=== PATIENT | male | born 1955 | race Caucasian/White ===

== ENCOUNTER 2019-07-28 07:44 | Outpatient (CLI) | payer BC, SELFPAY ==
--- NOTE | 2019-07-28 08:34 | ECG_ITS ---
Measurements Intervals [place] Rate: 59 P: 40 IN: 148 QRS: -22 QRSD: 86 T: 12 QT: 383 QTc: 381 Interpretive Statements SINUS BRADYCARDIA BORDERLINE R WAVE PROGRESSION, ANTERIOR LEADS CONSIDER INFERIOR INFARCT, AGE INDETERMINATE BASELINE ARTIFACT- I, II, III, AVR, AVL, AVF, V3 ABNORMAL ECG Electronically Signed On 07-28-2019 8:59:12 CDT by Chase Tapia D.O.
[2019-07-28 09:01] LABS: Basophils Absolute Auto 0.1 K/mm3 (0.0-0.1); Eosinophils Absolute Auto 0.2 K/mm3 (0-0.3); Eosinophils Percent Auto 3.3 % (0-4.4); Hemoglobin 14.8 g/dL (14.0-18.0); Immature Granulocyte Absolute 0.02 K/mm3 (0.00-0.031); Immature Granulocyte Percent A 0.3 % (0-0.5); Lymphocytes Absolute Auto 1.93 K/mm3 (0.9-3.2); Lymphocytes Percent Auto 27.5 % (18.3-44.2); Mean Corpuscular HGB Conc 32.9 g/dl (32-36); Mean Corpuscular Hemoglobin 31.4 pg (26-34); Mean Corpuscular Volume 95.5 fl (80-100); Mean Platelet Volume 11.3 fl (7.4-10.4); Monocytes Absolute Auto 0.5 K/mm3 (0.1-0.6); Monocytes Percent Auto 7.6 % (2.6-8.5); Neutrophils Absolute Auto 4.2 K/mm3 (1.3-6.7); Neutrophils Percent Auto 60.3 % (45.5-73.1); Platelet Count Result 216 k/mm3 (150-375); Red Blood Count 4.71 M/mm3 (4.6-6.20)
[2019-07-28 09:10] LABS: Prothrombin Time 12.8 Seconds (11.1-14.7)
[2019-07-28 09:11] LABS: Partial Thromboplastin Time 27.5 SECONDS (22.3-36.8)
[2019-07-28 09:17] LABS: Urine Cotinine NEGATIVE
[2019-07-28 09:19] LABS: Albumin Level 4.3 g/dL (3.5-5.1); Blood Urea Nitrogen 21 mg/dL (9-20); Calcium 8.9 mg/dL (8.4-10.2); Carbon Dioxide 29 mmol/L (22-30); Chloride 104 mmol/L (98-107); Estimated Glomerular Filt Rate > 60; Glucose 88 mg/dL (75-110); Potassium 3.7 mmol/L (3.4-5.0); Sodium 139 mmol/L (137-145)
[2019-07-28 09:32] LABS: Add Urine Microscopic? YES; Appearance Urine Clear (Clear); Bilirubin Urine Negative (Negative); Blood Urine Negative (Negative); Color Urine Yellow (Yellow); Glucose Urine UA Negative (Negative); Ketones Urine Negative (Negative); Leukocyte Esterase Ur Negative LEU/UL (Negative); Mucus Urine Heavy /lpf; Nitrate Urine Negative (Negative); Protein Urine Negative (Negative); RBC Urine 0-2 /hpf (0-2); Specific Grav Ur 1.028 (1.001-1.035); Urobilinogen Urine Negative mg/dL (<2.0); WBC Urine 0-3 /hpf
== END 2019-07-28 07:45 | disposition home or self-care (01) ==
LOC: ANHSURGERY 07:47
PROVIDERS: PCP Family Medicine; Visit Provider Orthopaedic Surgery
DX: Z01.818 Encounter for other preprocedural examination (principal); M17.10 Unilateral primary osteoarthritis, unspecified knee; R94.31 Abnormal electrocardiogram [ECG] [EKG]
CPT/HCPCS: 36415; 80048; 80307; 81001; 82040; 83036; 85025; 85610; 85730; 86850; 86900; 86901; 87081; 93005

== ENCOUNTER 2019-08-02 00:26 | Outpatient (CLI) | payer BC, SELFPAY ==
[2019-08-02 17:00] LABS: SARS-CoV-2 RNA PCR Negative
== END 2019-08-02 00:27 | disposition home or self-care (01) ==
LOC: ANHCOVIDDT 00:26
PROVIDERS: PCP Family Medicine; Visit Provider Orthopaedic Surgery
DX: Z01.818 Encounter for other preprocedural examination (principal); Z11.59 Encounter for screening for other viral diseases
CPT/HCPCS: 87635; C9803; U0003

== ENCOUNTER 2019-08-04 18:15 | Inpatient (IN) | payer BC, SELFPAY ==
[2019-07-28 08:00] VITALS: BMI 29.3
[2019-07-28 08:37] VITALS: BP 126/64; PULSE 62; RESP 20; TEMP 36.6; O2SAT 100
[2019-08-04] VITALS (11 sets, daily range): BP systolic 108–135; BP diastolic 60–91; PULSE 58–73; RESP 12–18; TEMP 35.8–36.7; O2SAT 93–100
--- NOTE | ~2019-08-04 | XR_ITS ---
EXAMINATION: XR knee RT 2V DATE: 08/04/2019 17:20 INDICATION: Postoperative evaluation following right total knee arthroplasty. TECHNIQUE: Anteroposterior and lateral views of the right knee were obtained. COMPARISON: None. FINDINGS: Right total knee arthroplasty without patellar resurfacing appears well seated and in near anatomic a lignment. No fractures identified. Skin kris and expected postoperative subcutaneous and intrame dullary and intra-articular gas. IMPRESSION: 1. Right total knee arthroplasty, negative for postoperative purposes. Reviewed, dictated and finalized at location A.
--- NOTE | 2019-08-04 07:31 | WPDHPUPDATE1 ---
History and Physical Update Update Date/Time: 08/04/19 07:31 History and Physical has been reviewed, including an updated exam of the patient. There are NO changes in the patient's condition. Risks, benefits, and alternatives have been discussed and questions answered. Patient agrees to proceed with procedure.
[2019-08-04] MEDS: LACTATED RINGERS 1,000 ML 30 ML IV CONT ×2 (09:32→17:02)
[2019-08-04] MEDS: IBUPROFEN IV 800 MG/200 ML 800 MG/200 ML BAG 400 MG IVPB (09:45)
[2019-08-04] MEDS: TRANEXAMIC ACID 1,000MG/ISO100 1,000 MG/100 ML BAG 200 MG IVPB (10:15)
--- NOTE | 2019-08-04 10:20 | WPDANESEPPF ---
Anes - Initial Pre Proc Eval Procedure: Operation Date: 08/04/19 11:00 Proposed Procedures p Right Total Knee Arthroplasty - Robin Hatfield MD Date/Time: 08/04/19 10:20 Surgeon: Robin Hatfield MD Pre Op Diagnosis: Right Knee DJD Patient Data Age: 64 Gender: M Height: 1.73 m Weight: 87.6 kg Last Vital Signs Temp 36.6 C 07/28/19 08:37 Pulse 62 07/28/19 08:37 Resp 20 07/28/19 08:37 BP 126/64 07/28/19 08:37 Pulse Ox 100 07/28/19 08:37 Allergies Allergy/AdvReac Type Severity Reaction Status Date / Time No Known Allergies Allergy Verified 07/28/19 08:04 Home Medications Medication Instructions Recorded Confirmed Type omeprazole 20 mg capsule,delayed 20 mg PO DAILY #90 cap 02/02/19 08/04/19 Rx release chlorhexidine gluconate 4 % 1 applic TOPICAL ONCE #237 ml 04/06/19 08/04/19 Rx topical liquid apixaban 5 mg tablet 5 mg PO BID #180 tablet 07/13/19 08/04/19 Rx Patient hx anesthesia problems: none Family hx anesthesia problems: none PMFSH Past Medical History Medical History (Updated 08/04/19 @ 10:20 by Orlando Del Cid DO) Anticoagulant long-term use stopped 07/30 Degenerative joint disease of knee DVT (deep venous thrombosis) Effusion, right knee GERD (gastroesophageal reflux disease) Social History Social History Smoking status: Never smoker Alcohol intake: current Anes - Eval Final PreProcedure Day of Procedure 08/04/19 10:20 Patient weight: overweight Heart: regular rate and rhythm Lungs: clear to auscultation and normal air movement Airway: Mallampati scale class 1 Neurological: alert and oriented Last oral intake: >/= 8 hours ASA classification: III Emergent: no Anesthetic plan: proceed Anesthesia type and monitoring: general LMA and standard monitoring Informed Consent: The patient's anesthetic plan and its attendant risks and benefits were discussed with the patient/family/POA. Questions were solicited and answers provided to the satisfaction of the patient/family/POA.
--- NOTE | 2019-08-04 10:20 | WPDANESPNB ---
Anes - Peripheral Nerve Block Date/Time: 08/04/19 10:20 I have discussed with the patient/family/POA the placement of a peripheral nerve block for post-operative pain management, including associated risks, benefits, complications, and side effects. Alternative methods of post-operative analgesia were detailed. Questions were solicited and answers provided to the satisfaction of the patient/family/POA. Time-Out: A pre-procedural Time-Out was completed immediately before starting the procedure and confirmed: Patient Identification, Site, Procedure, Patient Position and the Availability of Requisite Equipment. Clinical Indications: Acute post-operative pain management requested by the operative surgeon. Nerve Block Insertion Note Anes-nerve block: adductor canal right Patient position: supine Skin prep: chlorhexidine Needle: 22 gauge, stimulating, insulated echogenic needle. Needle length: 80 mm Technique: ultrasound Injectate: bupivacaine 0.5% with epi 5 mcg/ml (30cc) Observations: tolerated well Complications: none Procedure start time:: 1419 Procedure end time:: 142
--- NOTE | 2019-08-04 11:40 | SUR.PREOP ---
1130- PT UPDATED PT ON DELAY IN DR. BULL'S ROOM. 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 CALLED AND UPDATED PT , BARRETT.
--- NOTE | 2019-08-04 13:32 | SUR.PREOP ---
3873- UPDATED PT ABOUT DELAY IN DR. BULL'S ROOM. PT RESTING IN STRETCHER. WILL CALL TO UPDATE
[2019-08-04] MEDS: ceFAZolin 2 GM/D5W 50 ML 2 GM/50 ML BAG IVPB ×2 (14:41→21:37)
[2019-08-04] MEDS: TRANEXAMIC ACID 1,000 MG/10 ML AMPUL 1000 MG IV PUSH (16:05)
--- NOTE | 2019-08-04 16:59 | PM.OP ---
Procedure Note - Brief Procedure Note - Brief Date of procedure: 08/04/19 Pre-op diagnosis: Right Knee DJD Post-op diagnosis: same Procedure performed: R TKA Anesthesia: GETA Surgeon: Robin Hatfield MD Estimated blood loss (mL): 100 Complications: No immediate complications Condition: stable Disposition: PACU
--- NOTE | 2019-08-04 17:51 | SUR.PHASEI ---
1750 sbar faxed floor notiifed
--- NOTE | 2019-08-04 17:55 | SUR.PHASEI ---
1755 eleonora spouse on pt condition and room#
--- NOTE | 2019-08-04 22:08 | OP_ITS ---
DATE OF PROCEDURE: 08/04/2019 PREOPERATIVE DIAGNOSIS: Right knee degenerative joint disease. POSTOPERATIVE DIAGNOSIS: Right knee degenerative joint disease. PROCEDURE: Right total knee arthroplasty. ANESTHESIA: General. COMPLICATIONS: None. INDICATIONS: This is a 64-year-old male, who is here for right total knee replacement. He has severe arthrosis with medial collapse. He is in [id number] pain most of the time. DESCRIPTION OF PROCEDURE: The patient was taken to the operating room in stable condition and placed in the supine position, and then general anesthesia was induced and then the right lower extremity was prepped and draped sterilely from the toes to the thigh. A midline skin incision was made. Medial parapatellar arthrotomy was made. There was severe arthrosis in the medial compartment and mild in lateral compartment and mild in the patellofemoral compartment. An IM isaura was placed in the femur and a distal femoral cut was made in 5 degrees of valgus removing approximately 9 mm of bone from the high side. The knee then was sized to 67.5 and then the cutting block was placed in alignment with Whitesides line and then anterior, posterior, and chamfer cuts were made to the femur. Once that was performed, an IM isaura was placed in the tibia. A transtibial cut was made taking approximately 10 mm of bone from the high side of the tibia. The surface of the tibia was planed to a smooth surface. Posterior osteophytes were removed from the femur. A 75 tibial trial was placed in one-third medial aspect of the tibial tubercle and then a 67.5 femoral trial was placed. The cuts were flushed with the implant. A #10 poly trial was placed. It was a CR type. The knee came out to full extension. There was good tracking of the patella without any tilt. There was good balanced knee joint with good varus and valgus stability in both flexion and extension. The knee had no excessive rollback in flexion. The trial instrumentation was removed and the components and then a Biomet tibial component measuring 75 was cemented in the tibia and then a 67.5 femoral trial was cemented in the femur and then a 10 CR poly component was tapped into place and secured. The cement was allowed to set and then after that, the knee was taken through range of motion again, found to be very stable. There was good extension, there was good varus valgus stress without any instability. The patella tracked without any tilt. The tourniquet was deflated. The bleeders were cauterized. The arthrotomy was approximated with #1 Vicryl suture, subcutaneous tissues with 2-0 Vicryl. The skin was approximated with kris. Wounds were washed, placed sterile dressing. The patient extubated. Fady I MT: Sunitha
[2019-08-05] VITALS (7 sets, daily range): BP systolic 120–137; BP diastolic 54–77; PULSE 70–90; RESP 16–20; TEMP 35.9–37.7; O2SAT 92–100
[2019-08-05] MEDS: ceFAZolin 2 GM/D5W 50 ML 2 GM/50 ML BAG IVPB ×2 (05:30→13:34)
[2019-08-05 05:58] LABS: Basophils Percent Auto 0.3 % (0.2-1.2); Hematocrit 39.1 % (42.0-52.0); Immature Granulocyte Absolute 0.06 K/mm3 (0.00-0.031); Immature Granulocyte Percent A 0.4 % (0-0.5); Lymphocytes Percent Auto 9.3 % (18.3-44.2); Mean Corpuscular HGB Conc 33.2 g/dl (32-36); Mean Corpuscular Hemoglobin 31.6 pg (26-34); Mean Corpuscular Volume 95.1 fl (80-100); Mean Platelet Volume 11.1 fl (7.4-10.4); Monocytes Absolute Auto 0.6 K/mm3 (0.1-0.6); Monocytes Percent Auto 4.3 % (2.6-8.5); Neutrophils Percent Auto 85.7 % (45.5-73.1); Platelet Count Result 200 k/mm3 (150-375); Red Blood Count 4.11 M/mm3 (4.6-6.20); Red Cell Distribution Width 13.1 % (11.5-14.5); White Blood Count 14.1 K/mm3 (4.5-10.0)
[2019-08-05 06:13] LABS: Blood Urea Nitrogen 19 mg/dL (9-20); Calcium 8.3 mg/dL (8.4-10.2); Carbon Dioxide 27 mmol/L (22-30); Chloride 103 mmol/L (98-107); Estimated CRCL calculation 72 ml/min; Estimated Glomerular Filt Rate > 60; Glucose 124 mg/dL (75-110); Potassium 4.2 mmol/L (3.4-5.0); Sodium 137 mmol/L (137-145)
[2019-08-05] MEDS: DOCUSATE SODIUM 100 MG CAPSULE PO ×2 (08:09→17:50)
[2019-08-05] MEDS: CELECOXIB 200 MG CAPSULE PO ×2 (08:09→17:50)
[2019-08-05] MEDS: APIXABAN 5 MG TABLET PO ×2 (08:10→17:50)
[2019-08-05] MEDS: ONDANSETRON INJ 4 MG/2 ML VIAL IV PUSH ×3 (08:10→17:52)
[2019-08-05] MEDS: PANTOPRAZOLE 40 MG TABLET PO (08:10)
--- NOTE | 2019-08-05 08:56 | PM.PNORT ---
Progress Note: A&P Assessment and Plan (1) S/P total knee arthroplasty: Qualifiers: Laterality: right Qualified Code(s): Z96.651 - Presence of right artificial knee joint Code(s): Z96.659 - Presence of unspecified artificial knee joint Status: Acute Assessment and Plan: POD #1: Right TKA Continue PT/OT. WBAT. Walker. Fall Risk. Continue pain control. Continue DVT prophylaxis. SCDs. Incentive spirometry. Monitor dressing. Change tomorrow or prior to discharge. Ice to knee. NO PILLOWS UNDER KNEE. Dispo: Home with Home Health pending progress with PT/OT (2) Degenerative joint disease of knee: Qualifiers: Osteoarthritis type: primary Laterality: right Qualified Code(s): M17.11 - Unilateral primary osteoarthritis, right knee Code(s): M17.10 - Unilateral primary osteoarthritis, unspecified knee Status: Acute Assessment and Plan: POD #1 RIGHT TKA. Continue TKA precautions. Ambulation with walker/WBAT. Subjective Subjective Date/Time Seen: 08/05/19 08:56 Post Op day: 1 Principal diagnosis: Right Knee DJD Interval history: POD #1: RIGHT TKA Complaints of nausea with breakfast. Patient given antiemetic and now reports feeling better. RLE feels heavy with ambulation. Pain well controlled. Review of Systems Review of Systems: All systems reviewed & are unremarkable except as noted in HPI and below Constitutional: Constitutional: Denies fever(s) and Denies headache(s) ENT: Denies headache(s) Cardiovascular: Cardiovascular: Denies chest pain, Denies diaphoresis, Denies palpitations and Denies dyspnea Respiratory: Respiratory: Denies dyspnea Gastrointestinal: Gastrointestinal: Denies abdominal pain, Denies constipation, Reports nausea and Denies vomiting Genitourinary: Genitourinary: Denies dysuria and Reports nocturia Musculoskeletal: Musculoskeletal: Reports arthralgias (Right Knee ), Reports joint swelling (Right Knee ), Reports limited range of motion (Right Knee ), Denies muscle cramps, Denies muscle weakness, Denies numbness and Denies tingling Neurologic: Denies headache(s) Endocrine: Endocrine: Denies palpitations Exam Const: General: comfortable and no acute distress Resp: Effort & Inspection: normal respiratory effort Cardio: Rate: regular rate Rhythm: regular rhythm GI: GI Palp: Yes Soft to palpation, No Tenderness to palpation present (GI) and No Guarding due to palpation present (GI) Skin: Wounds: wounds noted Other: Incision c/d/i. No surrounding redness/warmth. No hematoma. Mild ecchymosis. No wound dehiscence Neuro: Cognition (Neuro): normal cognition Other: NV intact aside from block. Moves toes. Sensation intact to light touch. +ankle dorsiflexion/plantarflexion. Extrem: Right upper extremity: normal to inspection, full ROM and normal capillary refill Left upper extremity: normal to inspection, full ROM and normal capillary refill Right lower extremity: normal to inspection, full ROM (ROM limited due to recent surgical intervention ), knee Details: tenderness (diffuse, mild ) and swelling (diffuse, mild ) and foot Details: vascular exam Details: dorsalis pedis pulse present, posterior tibial pulse present and normal capillary refill, tendon exam Details: active flexion normal and active extension normal and motor-sensory exam Details: two point discrimination normal and light-touch normal Left lower extremity: normal to inspection Psych: Mental Status: mental status grossly normal Affect: normal affect Objective Data Vital Signs Vital Signs: Vital Signs - 24 hr 08/04/19 10:00 08/04/19 17:05 08/04/19 17:20 Temperature 35.8 C L 36.2 C L Pulse Rate 60 63 65 Respiratory Rate 14 12 Blood Pressure 119/68 127/60 110/67 Pulse Oximetry 100 100 100 08/04/19 17:30 08/04/19 17:40 08/04/19 17:56 Temperature Pulse Rate 73 71 69 Respiratory Rate 15 12 16 Blood Pressure 116/71 108/91 H 112/86 Pulse Oximetry 100 9
--- NOTE | 2019-08-05 09:41 | WPDANESPN ---
Anes - Prog Note Post-Op Date/Time: 08/05/19 09:41 Cardiovascular status: normal Respiratory status: normal Airway patency: baseline Mental status: baseline Post-Op hydration status: normal Vital Signs: Last Vital Signs Temp 36.6 C 08/05/19 04:15 Pulse 85 08/05/19 04:15 Resp 18 08/05/19 04:15 BP 132/65 08/05/19 04:15 Pulse Ox 92 08/05/19 04:15 I/O: Intake & Output 08/04/19 08/05/19 08/05/19 23:59 07:59 15:59 Intake Total 200 250 Output Total 950 Balance 200 -700 Laboratory Tests 08/05/19 05:43 08/05/19 05:43 08/05/19 08/05/19 05:43 05:43 WBC 14.1 H RBC 4.11 L Hgb 13.0 L Hct 39.1 L MCV 95.1 MCH 31.6 MCHC 33.2 RDW 13.1 Plt Count 200 MPV 11.1 H Immature Gran % (Auto) 0.4 Neut % (Auto) 85.7 H Lymph % (Auto) 9.3 L [place] % (Auto) 4.3 Eos % (Auto) 0.0 Baso % (Auto) 0.3 Lymph # (Auto) 1.30 [place] # (Auto) 0.6 Eos # (Auto) 0.0 Baso # (Auto) 0.0 Abs Immat Gran (auto) 0.06 H Absolute Neuts (auto) 12.0 H Absolute Nucleated RBC 0.0 Nucleated RBC % 0.0 Sodium 137 Potassium 4.2 Chloride 103 Carbon Dioxide 27 BUN 19 Creatinine 0.90 Estim Creat Clear Calc 72 Estimated GFR > 60 Glucose 124 H Calcium 8.3 L Post-procedural complaints: none Patient Feedback: Patient satisfied with anesthetic care.
--- NOTE | 2019-08-05 11:18 | PM.IMCN ---
Assessment and Plan Assessment and plan (1) S/P total knee arthroplasty: Qualifiers: Laterality: right Qualified Code(s): Z96.651 - Presence of right artificial knee joint Code(s): Z96.659 - Presence of unspecified artificial knee joint Status: Acute Assessment and Plan: Postop day 1. 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 Second recurrence and now on long-term anticoagulation. (3) Ortiz's esophagus: Code(s): K22.70 - Ortiz's esophagus without dysplasia Status: Acute Assessment and Plan: Continue PPI and surveillance with his reamer hand HPI Data of Consult Consult date: 08/05/19 Requesting Physician: Robin Hatfield MD Primary Care Provider: Chauncey Davis MD Consult Narrative Narrative: Date of visit 08/04 8958 Ronak Murdock is a 64 year old male on chronic anticoagulation secondary to unprovoked DVT and history Ortiz's esophagus who under went right total knee arthroplasty 08/03. Present time he has minimal discomfort with no other complaints fever chills cough shortness of breath. Working with therapy and hopefully to go home later today. Review of Systems Review of Systems: Narrative: Constitutional weight stable appetite good no fever no chills Eye no double vision scotoma Mouth no pharyngitis laryngitis Pulmonary no short of breath wheezing or cough CV no chest pain palpitations GI has no dysphasia occasional reflux and is undergoing EGD yearly for Ortiz's no dysuria no hematuria Muscle skeletal no particular joint discomfort Integument no skin breakdown rashes Neuropsych no seizures syncope [facility] Past Medical History Medical History (Updated 08/05/19 @ 11:27 by Braden Moser MD) Anticoagulant long-term use stopped 07/30 Ortiz's esophagus Degenerative joint disease of knee DVT (deep venous thrombosis) Effusion, right knee GERD (gastroesophageal reflux disease) Family History Family History (Updated 08/05/19 @ 11:25 by Braden Moser MD) Father , age 84, bladder carcinoma and CVA Cerebrovascular accident Mother No problems noted. 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 [employer] Smoking status: Never smoker Alcohol intake: never Substance use: never Gender identity (if verbalized by the patient): Male Spiritual care concerns: No Meds Home Medications and Allergies Home Medications Medication Instructions Recorded Confirmed Type omeprazole 20 mg capsule,delayed 20 mg PO DAILY #90 cap 02/02/19 08/04/19 Rx release chlorhexidine gluconate 4 % 1 applic TOPICAL ONCE #237 ml 04/06/19 08/04/19 Rx topical liquid apixaban 5 mg tablet 5 mg PO BID #180 tablet 07/13/19 08/04/19 Rx Allergies Allergy/AdvReac Type Severity Reaction Status Date / Time No Known Allergies Allergy Verified 07/28/19 08:04 Vital Signs Vital Signs - 24 hr 08/04/19 17:05 08/04/19 17:20 08/04/19 17:30 Temperature 36.2 C L Pulse Rate 63 65 73 Respiratory Rate 14 12 15 Blood Pressure 127/60 110/67 116/71 Pulse Oximetry 100 100 100 08/04/19 17:40 08/04/19 17:56 08/04/19 18:15 Temperature Pulse Rate 71 69 66 Respiratory Rate 12 16 12 Blood Pressure 108/91 H 112/86 122/67 Pulse Oximetry 93 95 97 08/04/19 18:30 08/04/19 18:45 08/04/19 19:15 Temperature 35.9 C L 36.1 C L 36.2 C L Pulse Rate 58 L 63 66 Respiratory Rate 16 16 16 Blood Pressure 135/75 135/77 124/73 Pulse Oximetry 100 95 97 08/04/19 20:15 08/05/19 00:15 08/05/19 04:15 Temperature 36.7 C 36.6 C 36.6 C Pulse Rate 64 72 85 Respiratory Rate
[2019-08-06] VITALS: BP 137/68; PULSE 89; RESP 18; TEMP 36.7; O2SAT 98
[2019-08-06 04:00] VITALS: BP 131/73; PULSE 88; RESP 18; TEMP 36.8; O2SAT 99
[2019-08-06 08:00] VITALS: PULSE 88; RESP 18; O2SAT 99
[2019-08-06] MEDS: CELECOXIB 200 MG CAPSULE PO (08:48)
[2019-08-06] MEDS: DOCUSATE SODIUM 100 MG CAPSULE PO (08:48)
[2019-08-06] MEDS: APIXABAN 5 MG TABLET PO (08:48)
[2019-08-06] MEDS: PANTOPRAZOLE 40 MG TABLET PO (08:48)
[2019-08-06] MEDS: ACETAMINOPHEN 500 MG TABLET 1000 MG PO (08:51)
[2019-08-06 10:00] VITALS: BP 131/69; PULSE 84; RESP 16; TEMP 36.8; O2SAT 100
--- NOTE | 2019-08-06 12:18 | PM.PNORT ---
Progress Note: A&P Assessment and Plan (1) S/P total knee arthroplasty: Qualifiers: Laterality: right Qualified Code(s): Z96.651 - Presence of right artificial knee joint Code(s): Z96.659 - Presence of unspecified artificial knee joint Status: Acute Assessment and Plan: POD #2: Right TKA Continue PT/OT. WBAT. Walker. Fall Risk. Continue pain control. Continue DVT prophylaxis. SCDs. Incentive spirometry. Monitor dressing. Change tomorrow or prior to discharge. Ice to knee. NO PILLOWS UNDER KNEE. Dispo: Home with Home Health today (2) Degenerative joint disease of knee: Qualifiers: Osteoarthritis type: primary Laterality: right Qualified Code(s): M17.11 - Unilateral primary osteoarthritis, right knee Code(s): M17.10 - Unilateral primary osteoarthritis, unspecified knee Status: Acute Assessment and Plan: POD #2 RIGHT TKA. Continue TKA precautions. Ambulation with walker/WBAT. Subjective Subjective Date/Time Seen: 08/06/19 12:18 POD #2: RIGHT TKA Pain well controlled. No new complaints. Wants to go home. Review of Systems Review of Systems: All systems reviewed & are unremarkable except as noted in HPI and below Constitutional: Constitutional: Denies fever(s) and Denies headache(s) ENT: Denies headache(s) Cardiovascular: Cardiovascular: Denies chest pain, Denies diaphoresis, Denies palpitations and Denies dyspnea Respiratory: Respiratory: Denies dyspnea Gastrointestinal: Gastrointestinal: Denies abdominal pain, Denies constipation, Reports nausea and Denies vomiting Genitourinary: Genitourinary: Denies dysuria and Reports nocturia Musculoskeletal: Musculoskeletal: Reports arthralgias (Right Knee ), Reports joint swelling (Right Knee ), Reports limited range of motion (Right Knee ), Denies muscle cramps, Denies muscle weakness, Denies numbness and Denies tingling Neurologic: Denies headache(s) Endocrine: Endocrine: Denies palpitations Exam Const: General: comfortable and no acute distress Resp: Effort & Inspection: normal respiratory effort Cardio: Rate: regular rate Rhythm: regular rhythm GI: GI Palp: Yes Soft to palpation, No Tenderness to palpation present (GI) and No Guarding due to palpation present (GI) Skin: Wounds: wounds noted Other: Incision c/d/i. No surrounding redness/warmth. No hematoma. Mild ecchymosis. No wound dehiscence Neuro: Cognition (Neuro): normal cognition Other: NV intact. Moves toes. Sensation intact to light touch. +ankle dorsiflexion/plantarflexion. Extrem: Right upper extremity: normal to inspection, full ROM and normal capillary refill Left upper extremity: normal to inspection, full ROM and normal capillary refill Right lower extremity: normal to inspection, full ROM (ROM limited due to recent surgical intervention ), knee Details: tenderness (diffuse, mild ) and swelling (diffuse, mild ) and foot Details: vascular exam Details: dorsalis pedis pulse present, posterior tibial pulse present and normal capillary refill, tendon exam Details: active flexion normal and active extension normal and motor-sensory exam Details: two point discrimination normal and light-touch normal Left lower extremity: normal to inspection Psych: Mental Status: mental status grossly normal Affect: normal affect Objective Data Vital Signs Vital Signs: Vital Signs - 24 hr 08/05/19 14:00 08/05/19 18:21 08/05/19 22:00 Temperature 36.8 C 35.9 C L 37.7 C H Pulse Rate 70 81 82 Respiratory Rate 16 16 18 Blood Pressure 120/68 133/76 137/65 Pulse Oximetry 99 100 99 08/05/19 22:13 08/06/19 00:00 08/06/19 04:00 Temperature 37.0 C 36.7 C 36.8 C Pulse Rate 89 88 Respiratory Rate 18 18 Blood Pressure 137/68 131/73 Pulse Oximetry 98 99 08/06/19 08:00 08/06/19 10:00 Temperature 36.8 C Pulse Rate 88 84 Respiratory Rate 18 16 Blood Pressure 131/69 Pulse Oximetry 99 100 Intake/Output Intake/Output: I
--- NOTE | 2019-08-06 12:27 | PM.DS ---
DS: Admitting Diagnosis Admitting Diagnosis Admitting Diagnosis: Right Knee DJD DS: Discharge Diagnosis Discharge Diagnosis (1) S/P total knee arthroplasty: Qualifiers: Laterality: right Qualified Code(s): Z96.651 - Presence of right artificial knee joint Code(s): Z96.659 - Presence of unspecified artificial knee joint Status: Acute Assessment and Plan: POD #2: Right TKA Continue PT/OT. WBAT. Walker. Fall Risk. Continue pain control. Continue DVT prophylaxis. SCDs. Incentive spirometry. Monitor dressing. Change tomorrow or prior to discharge. Ice to knee. NO PILLOWS UNDER KNEE. Dispo: Home with Home Health today (2) Degenerative joint disease of knee: Qualifiers: Osteoarthritis type: primary Laterality: right Qualified Code(s): M17.11 - Unilateral primary osteoarthritis, right knee Code(s): M17.10 - Unilateral primary osteoarthritis, unspecified knee Status: Acute Assessment and Plan: POD #2 RIGHT TKA. Continue TKA precautions. Ambulation with walker/WBAT. DS: Summary Hospital Course Reason for hospitalization: Right Knee DJD Right Total Knee Arthroplasty Hospital Course: 64-year-old male admitted after a right total knee replacement performed by Dr. bethany Winters. Surgical intervention performed on August 04, [address] Hatfield. the patient was admitted for postoperative pain management, medical management and physical and occupational therapy. Patient progressed well with physical therapy and occupational therapy and was deemed safe to go home with home health. The patient was cleared from a medical standpoint as well. The patient will be discharged home today with home health services. The patient will follow up in our office in 3 weeks. Status at Discharge Functional status at discharge: uses cane/walker Overall status at discharge: patient is progressing back to baseline Time Spent with Patient Time attestation: Total time spent providing and/or coordinating discharge services: Exam Const: General: comfortable and no acute distress Resp: Effort & Inspection: normal respiratory effort Cardio: Rate: regular rate Rhythm: regular rhythm GI: GI Palp: Yes Soft to palpation, No Tenderness to palpation present (GI) and No Guarding due to palpation present (GI) Skin: Wounds: wounds noted Other: Incision c/d/i. No surrounding redness/warmth. No hematoma. Mild ecchymosis. No wound dehiscence Neuro: Cognition (Neuro): normal cognition Other: NV intact. Moves toes. Sensation intact to light touch. +ankle dorsiflexion/plantarflexion. Extrem: Right upper extremity: normal to inspection, full ROM and normal capillary refill Left upper extremity: normal to inspection, full ROM and normal capillary refill Right lower extremity: normal to inspection, full ROM (ROM limited due to recent surgical intervention ), knee and foot Left lower extremity: normal to inspection Psych: Mental Status: mental status grossly normal Affect: normal affect Discharge Plan Discharge Attending physician on discharge: Robin Hatfield Consulting providers: Cedric Horn Discharging Clinician: Aminah Dawn Anticipated Discharge Date/Time: 08/06/19 12:20 Patient Disposition: Home Health Service Activity: may shower, no driving and follow weight bearing status Diet: as tolerated Wound Care Instructions: follow printed instructions Discharge Instructions: Per Care Coordination: Home with [facility], . They will call you to arrange a first visit in your home. RN/PT/OT Evaluation and Treatment. Post Op Total Knee Replacement Instructions Dr. Robin Hatfield ?Your dressing was changed today. You will be sent home with one additional dressing to be changed in 5 days by the home health RN. Your kris will be removed on the 14th day after surgery and steri-strips will be placed. ?You may shower with your dressing but do not sub
--- NOTE | 2019-08-06 12:39 | PM.IMPN ---
Progress Note: A&P Assessment and Plan (1) S/P total knee arthroplasty: Qualifiers: Laterality: right Qualified Code(s): Z96.651 - Presence of right artificial knee joint Code(s): Z96.659 - Presence of unspecified artificial knee joint Status: Acute Assessment and Plan: Postop day 2. 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 POD #2: RIGHT TKA RLE feels better with ambulation. Pain well controlled. Yesterday and leg felt numb. Some pain but tolerable, did all physical therapy Exam Narrative: Exam Narrative: Blood pressure 130/70 pulse is 84 respirations 16 per minute saturating 100% on room air Pupil equal reactive to light sclera anicteric Neck supple no adenopathy thyromegaly carotid bruits Mouth normal Lungs clear CV regular rate rhythm no murmurs or gallops Abdomen is soft nontender no masses Extremities without edema good distal pulses right bandage over incision only dry and intact Neuro alert no focal deficits Integument no skin breakdown rashes seen Objective Data Vital Signs Vital Signs: Vital Signs - 24 hr 08/05/19 14:00 08/05/19 18:21 08/05/19 22:00 Temperature 36.8 C 35.9 C L 37.7 C H Pulse Rate 70 81 82 Respiratory Rate 16 16 18 Blood Pressure 120/68 133/76 137/65 Pulse Oximetry 99 100 99 08/05/19 22:13 08/06/19 00:00 08/06/19 04:00 Temperature 37.0 C 36.7 C 36.8 C Pulse Rate 89 88 Respiratory Rate 18 18 Blood Pressure 137/68 131/73 Pulse Oximetry 98 99 08/06/19 08:00 08/06/19 10:00 Temperature 36.8 C Pulse Rate 88 84 Respiratory Rate 18 16 Blood Pressure 131/69 Pulse Oximetry 99 100 Intake/Output Intake/Output: Intake & Output 08/03/19 08/04/19 08/05/19 08/06/19 23:59 23:59 23:59 23:59 Intake Total 200 1070 250 Output Total 1800 1050 Balance 200 -730 -800 Meds/Results Medications: Active Medications Generic Name Dose Route Start Last Admin Trade Name Freq PRN Reason Stop Dose Admin Acetaminophen 1,000 mg 08/04/19 18:15 08/06/19 08:51 Tylenol Tablet PO 1,000 mg Q6H PRN Administration Mild Pain (1-3) Apixaban 5 mg 08/05/19 09:00 08/06/19 08:48 Eliquis PO 5 mg BID DOC Administration Celecoxib 200 mg 08/05/19 08:00 08/06/19 08:48 Celebrex PO 200 mg BIDWM DOC Administration Diazepam 5 mg 08/04/19 18:15 Valium Po PO Q8H PRN Spasms Diphenhydramine HCl 25 mg 08/04/19 18:15 Benadryl Inj IV PUSH Q6H PRN Itching Docusate Sodium 100 mg 08/05/19 09:00 08/06/19 08:48 Colace Capsule PO 100 mg BID [facility] Administration Morphine Sulfate 4 mg 08/04/19 18:15 Morphine Sulfate Inj IV PUSH Q2H PRN Breakthrough pain rated 7-10 Naloxone HCl 0.1 mg 08/04/19 18:15 Narcan IV PUSH Q2M PRN Opiate Reversal Ondansetron HCl 4 mg 08/04/19 18:15 08/05/19 17:52 Zofran Inj IV PUSH 4 mg Q4H PRN Administration Nausea And Vomiting Oxycodone/Acetaminophen 1 tablet 08/04/19 18:15 Percocet 5-325 Mg PO Q4H PRN Pain Rated 4-6 Pantoprazole Sodium 40 mg 08/05/19 09:00 08/06/19 08:48 Protonix PO 40 mg QAM [facility] Administration Radiology Results: ITS Impressions Knee X-Ray 08/04/19 17:40 IMPRESSION: 1. Right total knee arthroplasty, negative for postoperative purposes. Quality VTE Prophylaxis VTE prophyla
== END 2019-08-06 13:04 | disposition home health service (06) | DRG 470 ==
LOC: ANH2MED 18:57
PROVIDERS: Admitting Provider Orthopaedic Surgery; PCP Family Medicine; Visit Provider Orthopaedic Surgery
PROC: 0SRC0J9 Replacement of Right Knee Joint with Synthetic Substitute, Cemented, Open Approach (ICD-10-PCS; CPT 27447; principal; 2019-08-04 11:00)
DX: M17.11 Unilateral primary osteoarthritis, right knee (principal); K21.9 Gastro-esophageal reflux disease without esophagitis; K22.70 Barrett's esophagus without dysplasia; Z86.718 Personal history of other venous thrombosis and embolism; Z79.01 Long term (current) use of anticoagulants
CPT/HCPCS: 36415; 73560; 80048; 85025; 97110; 97116; 97161; 97165; A9270; C1713; C1776; J0171; J0690; J1100; J1170; J1741; J2250; J2270; J2370; J2405; J2704; J2795; J3010; J7120

== ENCOUNTER 2021-12-24 06:33 | Outpatient (CLI) | payer OTHER, SELFPAY ==
--- NOTE | ~2021-12-24 | MR_ITS ---
EXAMINATION: MR brain/brain stem wo/w con DATE: 12/24/2021 07:08 INDICATION: Neurological decline. TECHNIQUE: Magnetic resonance imaging (MRI) of the brain and brainstem was performed without intraven ous contrast. The exam was terminated after the shellfish sorter images due to claustrophobia. COMPARISON: None. FINDINGS: The shellfish sorter images of the brain are unremarkable. The ventricles are normal in size. IMPRESSION: 1. Unremarkable shellfish sorter images of the brain. The exam was terminated after these images due to claustro phobia. Reviewed, dictated and finalized at location A. E MAKER IMPRESSION: 1. Unremarkable shellfish sorter images of the brain. The exam was terminated after these images due to claustrophobia.
== END 2021-12-24 06:34 | disposition home or self-care (01) ==
PROVIDERS: PCP Family Medicine; Visit Provider Nurse Practitioner Family
DX: R26.89 Other abnormalities of gait and mobility (principal); R29.818 Other symptoms and signs involving the nervous system; R29.898 Other symptoms and signs involving the musculoskeletal system; R42 Dizziness and giddiness
CPT/HCPCS: 70553

== ENCOUNTER → 2022-05-30 14:13 | Outpatient (CLI) | payer OTHER, SELFPAY ==
--- NOTE | ~2022-05-30 | MR_ITS ---
EXAMINATION: MR femur LT wo con DATE: 05/30/2022 14:56 INDICATION: Left thigh cellulitis and myositis. TECHNIQUE: Magnetic resonance imaging (MRI) of the left femur was performed without intravenous contr ast. COMPARISON: None. FINDINGS: Bone alignment is normal. No fracture. There is no evidence of osteomyelitis. There is a sm all knee joint effusion. There is a moderate-sized Blackmon's cyst. There is a skin marker at the medial thigh. There is mild fat stranding in the medial thigh. The musculature is normal. IMPRESSION: 1. Mild fat stranding in the medial left thigh, consistent with edema versus inflammation. 2. Moderate-sized left Blackmon's cyst. 3. Small left knee joint effusion. Reviewed, dictated and finalized at location A. IMPRESSION: 1. Mild fat stranding in the medial left thigh, consistent with edema versus in flammation. 2. Moderate-sized left Blackmon's cyst. 3. Small left knee joint effusion.
== END ==
PROVIDERS: PCP Nurse Practitioner Family
DX: M60.9 Myositis, unspecified (principal); L03.116 Cellulitis of left lower limb; M71.22 Synovial cyst of popliteal space [Baker], left knee; M25.462 Effusion, left knee
CPT/HCPCS: 73721

== ENCOUNTER 2022-08-27 13:07 | Outpatient (CLI) | payer OTHER, SELFPAY ==
--- NOTE | 2022-08-27 13:53 | ECHO_ITS ---
Patient Info Name: Ronak Murdock Age: 67 years : 1955 Gender: Male Ht: 67 in Wt: 175 lbs BSA: 1.95 m2 HR: 68 bpm BP: 127 / 88 mmHg Heart Rhythm: Sinus Rhythm Technical Quality: Fair Exam Date: 08/27/2022 2:06 PM Exam Location: [facility] Patient Status: Outpatient Admit Date: 08/27/2022 Staff Ordering Physician: Chase Tapia DO Substation Operator Chief: Anne Marie Sherwood RDCS Attending Provider: Chase Tapia DO Referring Physician: Willie BELL; Exam Type: CA echo doppler color flow Study Info Indications I51.9 - Heart disease, unspecified Complete two-dimensional, color flow and Doppler transthoracic echocardiogram is performed. Summary 1. Complete two-dimensional, color flow and Doppler transthoracic echocardiogram is performed. 2. Left ventricular chamber dimension is normal. 3. Left ventricular systolic function is normal, estimated at 60-65%. 4. The left ventricular diastolic function is grade I diastolic dysfunction. 5. E/e' 11 is mildly elevated. 6. There is mild mitral valve regurgitation. 7. There is trace tricuspid valve regurgitation. 8. No pulmonary hypertension, estimated pulmonary arterial systolic pressure is 17 mmHg. Left Ventricle E/e' 11 is mildly elevated. Left ventricular chamber dimension is normal. Left ventricular systolic function is normal, estimated at 60-65%. The left ventricular diastolic function is grade I diastolic dysfunction. Right Ventricle Right ventricular systolic function is normal and with normal TAPSE 2.8 cm. Right ventricular chamber dimension is normal. Left Atria Left atrial chamber dimension is normal. Right Atria Right atrial chamber dimension is normal. Aortic Valve The aortic valve is trileaflet. There is no aortic valve stenosis. There is no aortic valve regurgitation. Pulmonic Valve There is no pulmonic regurgitation. Mitral Valve There is no mitral valve stenosis. There is mild mitral valve regurgitation. Tricuspid Valve There is trace tricuspid valve regurgitation. No pulmonary hypertension, estimated pulmonary arterial systolic pressure is 17 mmHg. Pericardium/Pleural There is no pericardial effusion. Inferior Vena Cava Normal inferior vena cava with >50% collapse upon inspiration consistent with normal right atrial pressure, 5 mmHg. Aorta The aortic root size at the sinus of Valsalva is normal. Left Ventricular Outflow Tract Name Value Normal LVOT 2D LVOT Diameter 2.0 cm LVOT Doppler LVOT Peak Gradient 2 mmHg LVOT Mean Gradient 1 mmHg LVOT VTI 16 cm LVOT VTI/AV VTI Ratio 0.7 LVOT Stroke Volume 52 ml LVOT CO 9.3 l/min LVOT CI 4.8 l/min/m2 Pulmonic Valve Name Value Normal RVOT Doppler RVOT Peak Gradient 1 mmHg P
== END 2022-08-27 13:08 | disposition home or self-care (01) ==
LOC: ANHCARD 13:08
PROVIDERS: PCP Family Medicine; Visit Provider Internal Medicine Cardiovascular Disease
DX: I51.9 Heart disease, unspecified (principal)
CPT/HCPCS: 93306

== ENCOUNTER 2022-10-29 08:47 | Outpatient (CLI) | payer OTHER, SELFPAY ==
--- NOTE | ~2022-10-29 | MR_ITS ---
EXAMINATION: MR brain/brain stem wo/w con DATE: 10/29/2022 09:36 INDICATION: Loss of balance. Left-sided dysmetria. TECHNIQUE: Magnetic resonance imaging (MRI) of the brain and brainstem was performed without and with 16 mL MultiHance intravenous contrast. COMPARISON: Brain MRI 12/24/2021 FINDINGS: There are scattered areas of nonspecific increased T2-weighted signal intensity in the cere bral white matter, which is within normal limits for the patient's age. There is no intracranial hemo rrhage, acute infarction, or abnormal intracranial mass lesion. The ventricles are normal in size. Th ere are likely changes of ocular lens replacement surgeries. The paranasal sinuses are clear. The mas toid air cells are normal. IMPRESSION: 1. Normal aging brain. Reviewed, dictated and finalized at location A. IMPRESSION: 1. Normal aging brain.
== END 2022-10-29 08:48 | disposition home or self-care (01) ==
PROVIDERS: PCP Family Medicine; Visit Provider Student in an Organized Health Care Education/Training Program
DX: R26.81 Unsteadiness on feet (principal)
CPT/HCPCS: 70553; A9577

== ENCOUNTER 2022-11-27 09:50 | Outpatient (CLI) | payer OTHER, SELFPAY ==
--- NOTE | 2022-11-27 11:00 | NEURO_ITS ---
Impression: # Non-diabetic complains of balance issues for over 4 years. 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 # Needle/EMG exam without myotonia or fibrillations but neurogenic in lower extremities particularly EDB?s. # Clinical correlation recommended. Nerve Conduction Studies Anti Sensory Summary Table Stim Site NR Peak (ms) P-T Amp (?V) Site1 Site2 Delta-P (ms) Dist (cm) David (m/s) Left Median Anti Sensory (2-3nd Digit) Wrist 3.4 12.4 Wrist 2-3nd Digit 3.4 14.0 41 Wrist 3.8 21.2 Wrist 2-3nd Digit 3.4 14.0 41 Right Median Anti Sensory (2-3nd Digit) Wrist 3.8 31.0 Wrist 2-3nd Digit 3.8 14.0 37 Wrist 3.9 34.0 Wrist 2-3nd Digit 3.8 14.0 37 Left Radial Anti Sensory (Base 1st Digit) Wrist 2.3 22.0 Wrist Base 1st Digit 2.3 0.0 Right Radial Anti Sensory (Base 1st Digit) Wrist 2.2 22.8 Wrist Base 1st Digit 2.2 0.0 Left Sup Fibular Anti Sensory (Ant Lat Mall) 14 cm 3.6 9.1 14 cm Ant Lat Mall 3.6 16.0 44 Right Sup Fibular Anti Sensory (Ant Lat Mall) 14 cm 3.7 18.6 14 cm Ant Lat Mall 3.7 16.0 43 Left Sural Anti Sensory (Lat Mall) Calf 3.6 12.5 Calf Lat Mall 3.6 16.0 44 Right Sural Anti Sensory (Lat Mall) Calf 3.7 20.3 Calf Lat Mall 3.7 16.0 43 Left Ulnar Anti Sensory (5th Digit) Wrist 3.0 6.1 Wrist 5th Digit 3.0 14.0 47 Right Ulnar Anti Sensory (5th Digit) Wrist 2.5 35.5 Wrist 5th Digit 2.5 14.0 56 Motor Summary Table Stim Site NR Onset (ms) O-P Amp (mV) Site1 Site2 Delta-0 (ms) Dist (cm) David (m/s) Left Median Motor (Abd Poll Brev) Wrist 3.4 7.6 Elbow Wrist 5.6 29.0 52 Elbow 9.0 6.5 Right Median Motor (Abd Poll Brev) Wrist 3.8 4.6 Elbow Wrist 5.4 27.0 50 Elbow 9.2 3.7 Left Peroneal Motor (Vastus Med) Ankle 5.2 1.7 Popit Ankle 9.0 39.0 43 Popit 14.2 1.3 Right Peroneal Motor (Vastus Med) Ankle 5.9 2.9 Popit Ankle 8.4 37.0 44 Popit 14.3 2.4 Left Tibial Motor (Abd Garcia Brev) Ankle 5.2 3.6 Knee Ankle 10.0 41.0 41 Knee 15.2 1.5 Right Tibial Motor (Abd Garcia Brev) Ankle 5.2 3.3 Knee Ankle 10.0 40.0 40 Knee 15.2 2.4 Left Ulnar Motor (Abd Dig Minimi) Wrist 2.6 7.9 A Elbow Wrist 5.1 29.0 57 A Elbow 7.7 6.6 Right Ulnar Motor (Abd Dig Minimi) Wrist 2.3 9.3 A Elbow Wrist 5.4 29.0 54 A Elbow 7.7 6.9 F Wave Studies NR F-Lat (ms) L-R F-Lat (ms) Left Median (Mrkrs) (Abd Poll Brev) 32.07 0.45 Right Median (Mrkrs) (Abd Poll Brev) 32.51 0.45 Left Peroneal (Mrkrs) (EDB) 56.48 0.62 Right Peroneal (Mrkrs) (EDB) 57.09 0.62 Left Tibial (Mrkrs) (Abd Hallucis) 56.19 0.19 Right Tibial (Mrkrs) (Abd Hallucis) 56.38 0.19 Left Ulnar (Mrkrs) (Abd Dig Min) 30.86 0.19 Right Ulnar (Mrkrs) (Abd Dig Min) 31.05 0.19 EMG Side Muscle Nerve Root Ins Act Fibs Amp Dur Recrt Comment Right 1stDorInt Ulnar C8-T1 Nml Nml Nml Nml Nml Right Ext Indicis Radial (Post Int) C7-8 Nml Nml Nml Nml Nml Right Ext Digitorum Radial (Post Int) C7-8 Nml Nml Nml Nml Nml Right BrachioRad Radial C5-6 Nml Nml Nml Nml Nml Right PronatorTeres Median C6-7 Nml Nml Nml Nml Nml Right Abd Poll Brev Medi
== END 2022-11-27 09:51 | disposition home or self-care (01) ==
LOC: ANHNEURO 09:51
PROVIDERS: PCP Family Medicine; Visit Provider Student in an Organized Health Care Education/Training Program
DX: R20.0 Anesthesia of skin (principal); G57.90 Unspecified mononeuropathy of unspecified lower limb
CPT/HCPCS: 95886; 95913

== ENCOUNTER 2023-08-19 09:41 | Outpatient (CLI) | payer OTHER, SELFPAY ==
--- NOTE | ~2023-08-19 | MR_ITS ---
MR cervical spine wo con Ordering provider: Leodan Guidry MD History: 68 years Male with . R20.0 - Anesthesia of skin . Comparison: None. Technique: MRI cervical spine without contrast. FINDINGS: CERVICAL SPINAL CORD/CRANIAL CERVICAL JUNCTION: Normal in signal and caliber. CERVICAL VERTEBRAL BODIES: Normal height and alignment. Normal marrow signal. DISK SPACES: Normal C2-C3: No stenosis. C3-C4: No stenosis. C4-C5: No stenosis. C5-C6: No stenosis. Mild disc bulge. Narrowing of the right intervertebral foramen with root compress ion. C6-C7: No stenosis. C7-T1: No stenosis. VISUALIZED PARASPINOUS SOFT TISSUES: Normal. IMPRESSION: 1. Mild disc bulge at the level of C5-C6. Narrowing of the right intervertebral foramen with root co mpression at the same level. 2. No acute osseous abnormality. Reviewed, dictated and finalized at location A. IMPRESSION: 1. Mild disc bulge at the level of C5-C6. Narrowing of the right intervertebra l foramen with root compression at the same level. 2. No acute osseous abnormality.
== END 2023-08-19 09:42 ==
LOC: MICIMG 09:41
PROVIDERS: PCP Family Medicine; Visit Provider Psychiatry & Neurology Neurology
DX: M50.322 Other cervical disc degeneration at C5-C6 level (principal)
CPT/HCPCS: 72141